=== PATIENT | male | born 1990 | race Caucasian/White ===

== ENCOUNTER 2023-02-24 07:02 | Emergency (ER) | payer MEDICAID, OTHER ==
[~2023-02-24] VITALS: Ht 175.3 cm; Wt 127.0 kg
[2023-02-24] MEDS ORDERED: IV NS 0.9% 1,000 ML IV ONE (07:30)
[2023-02-24] MEDS ORDERED: IV NS 0.9% 1,000 ML BAG IV ONE ×2 (07:30→09:00)
--- NOTE | 2023-02-24 07:35 | NUR ---
BIB RA 878 FROM HOME,BLACK TARRY STOOL SINCE YESTERDAY, with yellow discolaration. pt is an alc drinker. pt has hx of MS
--- NOTE | 2023-02-24 07:40 | NUR ---
IV INSERTED AT LAC 20G BLD DRAWN , SENT TO LAB, IV INSERTED RHAN, 22G
--- NOTE | 2023-02-24 08:04 | NUR ---
COVID SWAB , SENT TO LAB
[2023-02-24 08:15] LABS: BASOPHILS # (AUTO) 0.1 K/uL (0.0-0.2); BASOPHILS % (AUTO) 0.8 % (0.0-2.0); EOSINOPHILS % (AUTO) 0.2 % (0.0-6.0); HEMATOCRIT 26 % (39-51); HEMOGLOBIN 9.1 g/dL (13.5-17.5); LYMPHOCYTES # (AUTO) 2.2 K/uL (0.8-4.8); LYMPHOCYTES % (AUTO) 14.4 % (20.0-44.0); MEAN CORPUSCULAR HGB CONC 35 g/dl (31.0-36.0); MEAN CORPUSCULAR VOLUME 107 fL (80-96); MONOCYTES # (AUTO) 1.2 K/uL (0.1-1.30); MONOCYTES % (AUTO) 8.1 % (2.0-12.0); NEUTROPHILS # (AUTO) 11.4 K/uL (1.8-8.9); NEUTROPHILS % (AUTO) 76.5 % (43.0-81.0); PLATELET COUNT (AUTO) 176 K/uL (150-450); RED BLOOD CELL COUNT(AUTO) 2.41 MIL/uL (4.5-6.0)
[2023-02-24 08:34] LABS: CALCIUM, SERUM 8.6 mg/dL (8.5-10.1); CARBON DIOXIDE 23 mmol/L (21-32); CHLORIDE 88 mmol/L (98-107); GLUCOSE 153 mg/dL (74-106); POTASSIUM 4.3 mmol/L (3.5-5.1); SODIUM SERUM 127 mmol/L (136-145); UREA NITROGEN, BLOOD 50 mg/dL (7-18)
--- NOTE | 2023-02-24 08:35 | NUR ---
[facility]
--- NOTE | 2023-02-24 08:40 | NUR ---
MOVE SHEET SUBMITTED.
[2023-02-24 08:43] LABS: OCCULT BLOOD STOOL NEGATIVE (NEGATIVE)
[2023-02-24 08:51] LABS: ALANINE AMINOTRANSFERASE 93 U/L (12-78); ALBUMIN 1.9 g/dL (3.4-5.0); ALKALINE PHOSPHATASE 209 U/L (46-116); ASPARTATE AMINOTRANSFERASE 409 U/L (15-37); BILIRUBIN,DIRECT 22.1 mg/dL (0.0-0.2); BILIRUBIN,TOTAL 28.5 mg/dL (0.2-1.0); LIPASE 308 U/L (73-393); TOTAL PROTEIN, SERUM 6.7 g/dL (6.4-8.2)
[2023-02-24] MEDS ORDERED: CEFEPIME 1 GM in IV D5W 50 ML IV ONE (09:00)
[2023-02-24] MEDS ORDERED: VANCOMYCIN 1 GM in IV D5W 250 ML IV ONE (09:00)
[2023-02-24] MEDS ORDERED: VANCOMYCIN 1 GM /D5W 250 ML PB IV ONE (09:17)
--- NOTE | 2023-02-24 09:34 | NUR ---
called pharm for Syntricity...
[2023-02-24] MEDS ORDERED: CHOL100043 PO (09:41)
[2023-02-24] MEDS ORDERED: MULT-447 PO (09:41)
[2023-02-24] MEDS ORDERED: AMAN100T PO (09:41)
--- NOTE | 2023-02-24 10:48 | NUR ---
[facility] [phone] [facility] FAXED CLINICALS TO [phone]
--- NOTE | 2023-02-24 11:00 | NUR ---
CEFEPIME 1G STARTED 1025 END TIME 1055
--- NOTE | 2023-02-24 11:10 | NUR ---
CALLED [facility] [phone] CO-ORDINATOR 16 AT CAPACITY AT THIS TIME.
--- NOTE | 2023-02-24 11:13 | NUR ---
[facility] [phone] PER [facility] HOLDING PATIENTS IN ER FOR ADMISSIONS. REQUESTING FACESHEET FAXED TO [phone].
--- NOTE | 2023-02-24 12:43 | NUR ---
[facility] FROM [facility] CALLED PER DR. ORDOÑEZ INR IS TOO HIGH FOR SCOPING. CASE BEING DECLINED. CAN RE-INITIATE TRANSFER AFTER MORE FAVORABLE LABS.
--- NOTE | 2023-02-24 15:29 | NUR ---
CONTACTED DR. SALEH ABOUT REACHING OUT TO DR. ORDOÑEZ.
[2023-02-24] MEDS ORDERED: PHYTONADIONE INJ 10 MG in IV D5W 50 ML SQ ONE (16:00)
[2023-02-24] MEDS ORDERED: PANTOPRAZOLE 40 MG VIAL IV ONE (16:00)
[2023-02-24] MEDS ORDERED: PANTOPRAZOLE 80 MG in IV NS 0.9% 100 ML IV ONE (16:00)
[2023-02-24] MEDS ORDERED: OCTREOTIDE 50 MCG/ML AMPUL IV ONE (16:00)
[2023-02-24] MEDS ORDERED: OCTREOTIDE 1,250 MCG in IV NS 0.9% 250 ML IV ONE (16:00)
[2023-02-24] MEDS ORDERED: PANTOPRAZOLE 40 MG VIAL ONE (16:28)
[2023-02-24] MEDS ORDERED: OCTREOTIDE 100 MCG/ML VIAL ONE (16:28)
[2023-02-24] MEDS ORDERED: PHYTONADIONE INJ 10 MG/1 ML AMPUL ONE (16:28)
[2023-02-24] MEDS ORDERED: PHYTONADIONE INJ 10 MG/1 ML AMPUL SQ ONE (16:30)
[2023-02-24] MEDS ORDERED: PANTOPRAZOLE 80 MG in IV NS 0.9% 500 ML IV ONE (16:30)
[2023-02-24] MEDS ORDERED: PANTOPRAZOLE 80 MG in IV NS 0.9% 500 ML IV PRN (17:00)
--- NOTE | 2023-02-24 17:37 | NUR ---
CALLED [facility] [phone] [facility], WILL FOLLOW UP WITH DR. ORDOÑEZ.
[2023-02-24 18:35] VITALS: BP 116/59
--- NOTE | 2023-02-24 18:35 | NUR ---
[facility] TRANSFUSION HOLD PATIENT HAS FEVER T-100.7, PLASMA RETURN BACK TO BLOOD BANK. COOLING MEASURE DONE WITH ICE PACKS TO ARMPIT AND GROIN
--- NOTE | 2023-02-24 19:04 | NUR ---
CALLED [facility] [phone] [facility], FAXED TRANSFER BACK AGREEMENT TO [phone].
--- NOTE | 2023-02-24 19:05 | NUR ---
PT ACCEPTED TO [facility] UNDER DR. HOUSER ROOM #[id number] TELE BED CALL [phone] FOR REPORT [employer] [phone].
--- NOTE | 2023-02-24 19:08 | NUR ---
CALLED [facility] FOR TRANSPORT NO [facility] TONIGHT PER MATTHEW.
--- NOTE | 2023-02-24 19:16 | NUR ---
CALLED [facility] TRANSPORT ETA 2099
--- NOTE | 2023-02-24 19:51 | NUR ---
REPORT GIVEN TO RAÚL JEAN [facility] [phone] FOR [place]
--- NOTE | 2023-02-24 20:00 | NUR ---
RECHECKED TEMP. 100.7 COOLING MEASURES RENDERED
--- NOTE | 2023-02-24 22:10 | NUR ---
PATIENT PICKUP BY [facility]. STAFF AND REPORT WAS GIVEN. ABOVE PROTONIX AND OCTREOTIDE INF. LEFT BEHIND BY [facility]ON[facility] STAFF.
== END 2023-02-24 22:10 | disposition short-term general hospital (02) ==
LOC: ER 07:03
DX: K72.00 Acute and subacute hepatic failure without coma (principal); N17.9 Acute kidney failure, unspecified; K76.7 Hepatorenal syndrome; A41.9 Sepsis, unspecified organism; R65.20 Severe sepsis without septic shock; J18.9 Pneumonia, unspecified organism; K52.9 Noninfective gastroenteritis and colitis, unspecified; E87.20 Acidosis, unspecified; D50.9 Iron deficiency anemia, unspecified; D72.829 Elevated white blood cell count, unspecified; R00.0 Tachycardia, unspecified; G35 Multiple sclerosis; Z20.822 Contact with and (suspected) exposure to COVID-19; Z79.899 Other long term (current) drug therapy; Z88.0 Allergy status to penicillin
CPT/HCPCS: 99291; 99292; 96372; 96365; 96361; 96366; 96367; 96368; 96375; 93005; 80074; 71045; 96376; 74176; 85025; 80048; 87040 ×2; 83605 ×2; 83690; 80076; 82272; 36415; 85730; 86850; 82962; 87426; 80320; J3430 ×2; J2354 ×3; J3370; J7060 ×2; J7030 ×2; J7050; J7040; C9113 ×2; A4223 ×2; J0692; C9803; G0480